=== PATIENT | female | born 1960 ===

== ENCOUNTER 2017-06-29 14:54 | Emergency (ER) | payer SELFPAY ==
[~2017-06-29] VITALS: Ht 157.5 cm; Wt 57.0 kg
[2017-06-29] MEDS ORDERED: DEXAMETHASONE 10 MG/ML VIAL IM ONE (15:15)
[2017-06-29] MEDS ORDERED: ONDANSETRON 4MG ODT PO ONE (15:15)
[2017-06-29] MEDS ORDERED: DIPHENHYDRAMINE 50MG/ML VIAL IM ONE (15:15)
[2017-06-29] MEDS ORDERED: LORAZEPAM 0.5MG TABLET PO ONE (15:15)
[2017-06-29 18:04] VITALS: BP 131/71
== END 2017-06-29 18:57 | disposition home or self-care (01) ==
LOC: ER 15:34
DX: T63.441A Toxic effect of venom of bees, accidental (unintentional), initial encounter (principal); E11.9 Type 2 diabetes mellitus without complications; I10 Essential (primary) hypertension; Z88.8 Allergy status to other drugs, medicaments and biological substances; Y92.89 Other specified places as the place of occurrence of the external cause
CPT/HCPCS: 96372; 99284; J1100; J1200; Q0162; Z7610